=== PATIENT | male | born 2000 | race Two or more races ===

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

== ENCOUNTER 2023-12-07 13:24 | Inpatient (IN) | payer MEDICAID ==
[~2023-12-07] VITALS: Ht 167.6 cm; Wt 179.6 kg
[2023-12-07 14:41] VITALS: PULSE 91; RESP 20; O2SAT 99
[2023-12-07 15:03] LABS: Basophils % (auto) 0.8 % (0.0-2.0); Eosinophils # (auto) 0.1 10 ^3/uL (0-0.8); Hemoglobin 14.5 g/dL (13.5-17.5); Monocytes # (auto) 0.5 10 ^3/uL (0-1.3); Neutrophils # (auto) 3.4 10 ^3/uL (1.6-8.6); Nucleated Red Blood Cells % 0.2 %; White Blood Cell 6.1 10^3/uL (4.4-10.8)
[2023-12-07 15:06] LABS: Basophils # (auto) 0 10 ^3/uL (0-0.2); Eosinophils % (auto) 2.3 % (0.0-7.0); Hematocrit 43.2 % (41.0-53.0); Lymphocytes # (auto) 1.9 10 ^3/uL (0.4-5.4); Lymphocytes % (auto) 31.4 % (10.0-50.0); Mean Corpuscular Hgb Conc. 33.5 g/dL (32.0-36.0); Mean Corpuscular Volume 80.5 fL (80.0-100.0); Neutrophils % (auto) 56.5 % (37.0-80.0); Platelet Count (auto) 220 10^3/uL (140-450); Red Blood Cells 5.36 10^6/uL (4.5-5.90)
[2023-12-07 15:19] LABS: INR 0.99 (0.9-1.15); Partial Thromboplastin Time 31.4 SEC (24.5-34.5); Prothrombin Time 10.5 sec (9.3-11.8)
[2023-12-07 15:20] LABS: Alanine Aminotransferase 31 U/L (7-40); Albumin 3.2 g/dL (3.2-4.8); Alkaline Phosphatase 77 U/L (46-116); Anion Gap 5 (5-15); BUN/Creatinine Ratio 22.4 (10.0-20.0); Blood Urea Nitrogen 15 mg/dL (9-23); Calcium 8.4 mg/dL (8.7-10.4); Carbon Dioxide 28 mmol/L (20-30); Chloride 102 mmol/L (98-107); Glucose 142 mg/dL (74-106); Potassium 3.1 mmol/L (3.5-5.1); Sodium 135 mmol/L (136-145)
[2023-12-07 15:21] LABS: Aspartate Aminotransferase 36 U/L (13-40); Bilirubin, Total 0.2 mg/dL (0.2-1.0); Total Protein 6.2 g/dL (5.7-8.2)
[2023-12-07] MEDS: VANCOMYCIN 1.5GM/300ML 300 ML IV ONE (16:11)
[2023-12-07] MEDS: FUROSEMIDE 40 MG/4 ML VIAL IV ONE (16:12)
[2023-12-07 19:50] VITALS: PULSE 89; RESP 26; O2SAT 92
[2023-12-07] MEDS ORDERED: ACETAMINOPHEN 325 MG TAB PO PRN (21:15)
[2023-12-07] MEDS ORDERED: ONDANSETRON HCL 4 MG/2 ML VIAL IV PRN (21:15)
[2023-12-07] MEDS ORDERED: HYDROcodone-ACET 5/325MG TAB PO PRN (21:15)
[2023-12-07] MEDS: POTASSIUM CHL 20 Meq TABLET PO ONE (21:59)
[2023-12-07] MEDS: CLINDAMYCIN 600MG IV 50 ML IV SCH (22:41)
[2023-12-07] MEDS: buPROPion HCL 75 MG TAB PO SCH (22:48)
[2023-12-07] MEDS: lamoTRIgine 100 MG TAB PO SCH (22:49)
[2023-12-07] MEDS ORDERED: LAMO100T44 PO (23:46)
[2023-12-07] MEDS ORDERED: HYDR-3682 PO (23:46)
[2023-12-07] MEDS ORDERED: TEMA30CA PO (23:46)
[2023-12-07] MEDS ORDERED: FURO1TAB31 PO (23:46)
[2023-12-08] MEDS: FUROSEMIDE 20 MG/2 ML VIAL IV SCH (05:24)
[2023-12-08 06:08] LABS: Basophils # (auto) 0 10 ^3/uL (0-0.2); Basophils % (auto) 0.5 % (0.0-2.0); Eosinophils # (auto) 0.2 10 ^3/uL (0-0.8); Eosinophils % (auto) 2.6 % (0.0-7.0); Hematocrit 41.9 % (41.0-53.0); Hemoglobin 14.3 g/dL (13.5-17.5); Lymphocytes # (auto) 1.7 10 ^3/uL (0.4-5.4); Lymphocytes % (auto) 29.6 % (10.0-50.0); Mean Corpuscular Hemoglobin 27.3 pg (28.0-32.0); Mean Corpuscular Hgb Conc. 34.1 g/dL (32.0-36.0); Mean Corpuscular Volume 80.2 fL (80.0-100.0); Monocytes # (auto) 0.6 10 ^3/uL (0-1.3); Monocytes % (auto) 10.8 % (0.0-12.0); Neutrophils # (auto) 3.3 10 ^3/uL (1.6-8.6); Neutrophils % (auto) 56.5 % (37.0-80.0); Nucleated Red Blood Cells % 0.1 %; Platelet Count (auto) 213 10^3/uL (140-450); Red Blood Cells 5.22 10^6/uL (4.5-5.90); White Blood Cell 5.8 10^3/uL (4.4-10.8)
[2023-12-08 06:31] LABS: Alanine Aminotransferase 27 U/L (7-40); Alkaline Phosphatase 66 U/L (46-116); Anion Gap 4 (5-15); Aspartate Aminotransferase 32 U/L (13-40); Blood Urea Nitrogen 12 mg/dL (9-23); Calcium 8.2 mg/dL (8.7-10.4); Carbon Dioxide 30 mmol/L (20-30); Chloride 104 mmol/L (98-107); Glucose 105 mg/dL (74-106); Potassium 3.6 mmol/L (3.5-5.1); Sodium 138 mmol/L (136-145)
[2023-12-08 06:32] LABS: Bilirubin, Total 0.3 mg/dL (0.2-1.0); Total Protein 5.9 g/dL (5.7-8.2)
[2023-12-08 08:00] VITALS: PULSE 78; RESP 20; O2SAT 98
[2023-12-08 09:00] VITALS: BP 114/72; PULSE 78; RESP 20; TEMP 97.9; O2SAT 95
[2023-12-08] MEDS: cefTRIAXone 1GM/50ML D5W 50 ML IV ONE (11:49)
[2023-12-08 12:47] LABS: Urine Bacteria None Seen /hpf (None Seen)
[2023-12-08 13:00] VITALS: BP 126/81; PULSE 79; RESP 20; TEMP 98.9; O2SAT 95
[2023-12-08 13:04] LABS: Urine Blood 1+ /uL (Negative); Urine Clarity Clear (Clear); Urine Color Yellow (Yellow); Urine Protein, UAD 4+ (Negative); Urine Urobilinogen Normal (Negative); Urine WBC 2 /hpf (0 - 3)
[2023-12-08 13:12] LABS: Amphetamine Screen, Urine Neg (NEGATIVE); Barbiturate Scree,Urine Neg (NEGATIVE); Benzodiazephine Screen, Urine Neg (NEGATIVE); Cannabinoid Screen, Urine Pos (NEGATIVE); Cocaine Screen, Urine Neg (NEGATIVE); Opiate Scree,Urine Neg (NEGATIVE); Phencyclidine Screen, Urine Neg (NEGATIVE)
[2023-12-08 17:09] VITALS: BP 145/80; PULSE 93; RESP 20; TEMP 99.2; O2SAT 96
[2023-12-08 20:00] VITALS: PULSE 83; RESP 20; O2SAT 96
[2023-12-08 21:00] VITALS: BP 139/72; PULSE 83; RESP 20; TEMP 98.2; O2SAT 96
[2023-12-08] MEDS: TEMAZEPAM 15 MG CAP PO PRN (22:41)
[2023-12-09] VITALS (8 sets, daily range): BP systolic 118–131; BP diastolic 54–80; PULSE 75–86; RESP 16–20; TEMP 97.7–98.5; O2SAT 95–98
[2023-12-09] MEDS: cefTRIAXone 1GM/50ML D5W 50 ML IV SCH (10:08)
[2023-12-09] MEDS: METOPROLOL SUCCINATE XL 50 MG TAB PO SCH (10:09)
[2023-12-09 10:53] LABS: Chloride 105 mmol/L (98-107); Potassium 3.7 mmol/L (3.5-5.1); Sodium 137 mmol/L (136-145)
[2023-12-09 10:54] LABS: Anion Gap 2 (5-15); Calcium 8.6 mg/dL (8.7-10.4); Carbon Dioxide 30 mmol/L (20-30)
[2023-12-09 10:59] LABS: BUN/Creatinine Ratio 20.6 (10.0-20.0); Blood Urea Nitrogen 13 mg/dL (9-23); Glucose 106 mg/dL (74-106)
[2023-12-09] MEDS: SPIRONOLACTONE 25 MG TAB PO ONE (13:00)
[2023-12-10] VITALS (7 sets, daily range): BP systolic 112–136; BP diastolic 61–80; PULSE 73–83; RESP 17–18; TEMP 97.8–98.4; O2SAT 94–97
[2023-12-10] MEDS: SPIRONOLACTONE 25 MG TAB PO SCH (09:19)
[2023-12-10] MEDS ORDERED: SPIR25TA PO (11:50)
[2023-12-10] MEDS ORDERED: FURO1TAB31 PO (11:50)
[2023-12-10] MEDS ORDERED: CIPR-173 PO (11:50)
== END 2023-12-10 17:23 | disposition home or self-care (01) | DRG 194 ==
LOC: ER 13:24 → OVERFLOW 21:13 → EAST 23:27
PROVIDERS: ADMIT Nurse Practitioner; ATTEND Internal Medicine Geriatric Medicine
DX: I11.0 Hypertensive heart disease with heart failure (principal); E87.1 Hypo-osmolality and hyponatremia; E66.01 Morbid (severe) obesity due to excess calories; N49.2 Inflammatory disorders of scrotum; N50.89 Other specified disorders of the male genital organs; I50.23 Acute on chronic systolic (congestive) heart failure; E11.9 Type 2 diabetes mellitus without complications; E87.6 Hypokalemia; F12.10 Cannabis abuse, uncomplicated; N39.0 Urinary tract infection, site not specified; Z79.899 Other long term (current) drug therapy; Z82.49 Family history of ischemic heart disease and other diseases of the circulatory system; Z83.3 Family history of diabetes mellitus; Z68.44 Body mass index [BMI] 60.0-69.9, adult; Z79.4 Long term (current) use of insulin
CPT/HCPCS: 36415; 71045; 76870; 80048; 80053; 80307; 81001; 83036; 83605; 83735; 83880; 84439; 84443; 84484; 85025; 85610; 85730; 87040; 87081; 87086; 93005; 93306; 93970; 96365; 96375; G0378; J3490